=== PATIENT | female | born 1995 | race Caucasian/White ===

== ENCOUNTER 2021-12-11 18:44 | Emergency (ER) | payer OTHER ==
[~2021-12-11] VITALS: Ht 177.8 cm; Wt 123.6 kg
[~2021-12-11 18:44] MED LIST: CARAFATE 1GM1 G PO; GEODON60 MG PO; NORCO 325 MG-51 TA1 PO; PRISTIQ100 MG PO; TOPCARE OMEPRAZ20 MG PO
[2021-12-11] MEDS ORDERED: DESYREL50 MG PO (19:01)
[2021-12-11 19:29] LABS: BASO # 0.03 K/mm3 (0.02-0.10); EOS # 0.58 K/mm3 (0.04-0.40); EOS % 5.6 % (1.0-5.0); HEMATOCRIT 39.7 % (37.0-47.0); HEMOGLOBIN 12.7 g/dL (12.5-16.0); LYMPH# 2.54 K/mm3 (1.50-4.00); MEAN CELL VOLUME 84 fl (78-100); MEAN CORPUSCULAR HEMOGLOBIN 27 pg (27-31); MEAN CORPUSCULAR HGB CONC 32 g/dL (33-37); MEAN PLATELET VOLUME 10.5 fl (7.4-10.4); MONO # 0.44 K/mm3 (0.20-0.80); NEU # 6.82 K/mm3 (1.40-6.50); PLATELET COUNT 319 K/mm3 (130-400); RED BLOOD COUNT 4.71 M/mm3 (4.10-5.30); RED CELL DISTRIBUTION WIDTH 13.1 % (11.5-14.5); WHITE BLOOD COUNT 10.4 K/mm3 (4.8-10.8)
[2021-12-11 19:43] LABS: TOTAL PROTEIN 7.2 g/dL (6.4-8.3)
[2021-12-11 19:45] LABS: TOTAL BILIRUBIN 0.4 mg/dL (0.2-1.2)
[2021-12-11 19:59] VITALS: BP 132/78
== END 2021-12-11 19:59 | disposition home or self-care (01) ==
LOC: ED 18:44
PROVIDERS: Nurse Practitioner
DX: K62.5 Hemorrhage of anus and rectum (principal)